=== PATIENT | female | born 1975 | race Caucasian/White ===

== ENCOUNTER 2024-01-22 11:12 | Emergency (ER) | payer BC ==
[2024-01-22] MEDS: Ketorolac 30 MG/ML SDV IM ONE (11:34)
[2024-01-22] MEDS: Cyclobenzaprine 10 MG Tab PO ONE (11:35)
[2024-01-22] MEDS: Acetaminophen/HYDROcodone 325-5 MG Tab PO STA (11:36)
== END 2024-01-22 12:56 | disposition home or self-care (01) ==
LOC: FB.ED 11:12
DX: S20.211A Contusion of right front wall of thorax, initial encounter (principal); Z79.899 Other long term (current) drug therapy; W01.0XXA Fall on same level from slipping, tripping and stumbling without subsequent striking against object, initial encounter
CPT/HCPCS: 71101; 96372; 99283; A9270; J1885